=== PATIENT | female | born 1970 | race Caucasian/White ===

== ENCOUNTER 2021-08-12 17:59 | Observation (INO) | payer OTHER, SELFPAY ==
[~2021-08-12] VITALS: Ht 154.9 cm; Wt 94.8 kg
[2021-08-12 18:06] VITALS: BP 150/73
--- NOTE | 2021-08-12 18:14 | NUR ---
PT AMBULATED TO BED 08.
--- NOTE | 2021-08-12 18:35 | NUR ---
RAD AT PATIENT BEDSIDE
[2021-08-12] MEDS ORDERED: guaiFENesin 20 MG/ML UDC PO ONE (18:40)
--- NOTE | 2021-08-12 18:50 | NUR ---
ALEXA AND INFLUENZA A&B COLLECTED AND HANDED TO ELDER TERRAZAS
--- NOTE | 2021-08-12 19:11 | NUR ---
50 y/o female, c/o productive cough with green mucus for 2 months, pt states her daughter is also sick with same symptom that started around the same time. pt denies n/v/d. pt denies dysuria, hematuria, increased urinary frequency and retention. lung bases crackles bl throughout, heart rate even and regular, no edema. skin intact, pt is aa&ox4, ambulates with even and steady gait. pt states pain is 0/10 at this time, intially came in with chest pain, describes it as discomfort with cough only. patient positioned for comfort. hob elevated. bed down. ermd made aware of pt. pmh: dm2, htn nka med: denies
[2021-08-12 19:13] LABS: BASOPHILS # (AUTO) 0.1 K/uL (0.00-0.22); BASOPHILS % (AUTO) 0.9 % (0.0-2.0); EOSINOPHILS # (AUTO) 0.2 K/uL (0-0.4); EOSINOPHILS % (AUTO) 1.9 % (0.0-4.0); HEMATOCRIT 38.6 % (36-48); HEMOGLOBIN 13.1 g/dL (12.0-16.0); LYMPHOCYTES # (AUTO) 3.2 K/uL (2.5-16.5); LYMPHOCYTES % (AUTO) 36.2 % (20.5-51.1); MEAN CORPUSCULAR HEMOGLOBIN 32 pg (27-31); MEAN CORPUSCULAR HGB CONC 34 g/dL (33-37); MEAN CORPUSCULAR VOLUME 92.5 fL (80-94); MONOCYTES # (AUTO) 0.7 K/uL (0.8-1.0); MONOCYTES % (AUTO) 7.6 % (1.7-9.3); NEUTROPHILS # (AUTO) 4.7 K/uL (1.8-7.7); NEUTROPHILS % (AUTO) 53.4 % (42.2-75.2); PLATELET COUNT (AUTO) 210 K/uL (140-450); RED BLOOD CELL COUNT(AUTO) 4.17 MIL/uL (4.20-5.40); RED CELL DISTRIBUTION WIDTH 13.1 % (11.6-13.7); WHITE BLOOD COUNT (AUTO) 8.7 K/uL (4.8-10.8)
[2021-08-12 19:52] LABS: ALBUMIN 3.1 g/dL (3.4-5.0); ANION GAP 14.8 (8-16); CARBON DIOXIDE 28.6 mmol/L (21-32); POTASSIUM 3.4 mmol/L (3.5-5.1); TOTAL BILIRUBIN 0.5 mg/dL (0.0-1.0)
[2021-08-12] MEDS ORDERED: ASPIRIN 81 MG TAB.CHEW PO ONE (19:55)
--- NOTE | 2021-08-12 19:57 | NUR ---
CALLED ADMITTING FOR ADMIT CALLOUT TO [facility]
--- NOTE | 2021-08-12 20:05 | NUR ---
[facility]
--- NOTE | 2021-08-12 20:30 | NUR ---
RESTING COMFORTABLY. PT STATES THAT SHE HAS NOT EATEN AND IS HUNGRY, SANDWICH AND WARM BLANKET GIVEN
[2021-08-12] MEDS ORDERED: POTASSIUM CHLORIDE 10 MEQ TABER PO PRN (21:05)
[2021-08-12] MEDS ORDERED: ONDANSETRON 4 MG/2 ML VIAL IVP PRN (21:05)
[2021-08-12] MEDS ORDERED: ACETAMINOPHEN 325 MG TAB PO PRN (21:05)
[2021-08-12] MEDS ORDERED: MAGNESIUM OXIDE 400 MG TAB PO PRN (21:05)
[2021-08-12] MEDS ORDERED: KCL 20 MEQ/WATER INJ PREMIX 200 ML IV PRN (21:05)
[2021-08-12] MEDS ORDERED: HYDROcodone/APAP 5/325 MG 1 TAB TAB PO PRN (21:05)
[2021-08-12] MEDS ORDERED: MORPHINE SULFATE 4 MG/ML SYR IVP PRN (21:05)
[2021-08-12] MEDS ORDERED: MAG SULF 2000 MG/WATER PREMIX 50 ML IV PRN (21:05)
[2021-08-12] MEDS ORDERED: DEXTROSE 50% 50 ML SYR IVP PRN (21:10)
[2021-08-12] MEDS ORDERED: INSULIN LISPRO SLIDING SCALE 100 UNITS/ML VIAL SUBQ PRN (21:10)
[2021-08-12] MEDS ORDERED: ASPI-1822 PO (21:43)
[2021-08-12] MEDS ORDERED: LISI40TA12 PO (21:44)
[2021-08-12] MEDS ORDERED: METF-350 PO (21:48)
[2021-08-12] MEDS ORDERED: LIP80 PO (21:48)
[2021-08-12] MEDS ORDERED: HYDR-4004 PO (21:49)
[2021-08-12 23:15] VITALS: BP 127/72
[2021-08-12] MEDS ORDERED: ASPIRIN 81 MG TAB.CHEW ONE (23:15)
[2021-08-13 04:00] VITALS: BP 150/76
[2021-08-13] MEDS: BLOOD GLUCOSE MONITORING 1 DEV DEV FS SCH ×2 (06:01→11:50)
--- NOTE | 2021-08-13 07:43 | NUR ---
RECEIVED REPORT FROM S[employer]OL OCCUPATIONAL THERAPIST RN. PT IN STABLE CONDITION.
[2021-08-13 07:52] LABS: BASOPHILS % (AUTO) 0.6 % (0.0-2.0); EOSINOPHILS # (AUTO) 0.2 K/uL (0-0.4); EOSINOPHILS % (AUTO) 2.7 % (0.0-4.0); HEMATOCRIT 38.5 % (36-48); HEMOGLOBIN 13.2 g/dL (12.0-16.0); LYMPHOCYTES # (AUTO) 2.8 K/uL (2.5-16.5); LYMPHOCYTES % (AUTO) 39.8 % (20.5-51.1); MEAN CORPUSCULAR HEMOGLOBIN 31 pg (27-31); MEAN CORPUSCULAR HGB CONC 34 g/dL (33-37); MEAN CORPUSCULAR VOLUME 91.3 fL (80-94); MONOCYTES # (AUTO) 0.6 K/uL (0.8-1.0); MONOCYTES % (AUTO) 8.2 % (1.7-9.3); NEUTROPHILS # (AUTO) 3.4 K/uL (1.8-7.7); NEUTROPHILS % (AUTO) 48.7 % (42.2-75.2); PLATELET COUNT (AUTO) 197 K/uL (140-450); RED BLOOD CELL COUNT(AUTO) 4.21 MIL/uL (4.20-5.40); RED CELL DISTRIBUTION WIDTH 13.3 % (11.6-13.7)
[2021-08-13 07:55] LABS: ANION GAP 13.2 (8-16); CARBON DIOXIDE 31.2 mmol/L (21-32); CREATININE 0.9 mg/dL (0.6-1.3); MAGNESIUM 1.4 mg/dL (1.8-2.4); POTASSIUM 3.4 mmol/L (3.5-5.1); TOTAL BILIRUBIN 0.5 mg/dL (0.0-1.0)
[2021-08-13 07:59] VITALS: BP 136/72
--- NOTE | 2021-08-13 08:22 | NUR ---
PATIENT HAS BEEN SCREENED AND CATEGORIZED LOW NUTRITION RISK. PATIENT WILL BE SEEN WITHIN 7 DAYS OF ADMISSION. 08/19/[address]
[2021-08-13] MEDS ORDERED: ASPIRIN 81 MG TAB.CHEW PO SCH (09:20)
[2021-08-13] MEDS ORDERED: LORATADINE 10 MG TAB PO SCH (10:25)
--- NOTE | 2021-08-13 10:49 | NUR ---
PT IS AOX4, DENIES PAIN, VSS, NAD NOTED. SEEN BY [employer]USTRIAL SALES MANAGER AND CLEARED FROM THEIR STANDPOINT.
[2021-08-13 12:11] VITALS: BP 128/70
[2021-08-13] MEDS ORDERED: LORA10TA19 PO (12:59)
[2021-08-13 13:48] VITALS: BP 136/62
--- NOTE | 2021-08-13 15:33 | NUR ---
PT DISCHARGED HOME, AWARE OF POC, IV DCED. QUESTIONS.CONCERNS ANSWERED AND SAFETY MEASURES IN PLACE.
[2021-08-13] MEDS ORDERED: ATORVASTATIN 80 MG TAB PO SCH (17:00)
[2021-08-14] MEDS ORDERED: hydroCHLOROthiazide 25 MG TAB PO SCH (09:00)
[2021-08-14] MEDS ORDERED: lisinopriL 20 MG TAB PO SCH (09:00)
== END 2021-08-13 15:30 | disposition home or self-care (01) ==
LOC: MED 17:59 → MTU 21:07
PROVIDERS: ADMIT Internal Medicine; ATTEND Internal Medicine
DX: R07.89 Other chest pain (principal); Z20.822 Contact with and (suspected) exposure to COVID-19; I10 Essential (primary) hypertension; E78.5 Hyperlipidemia, unspecified; E87.6 Hypokalemia; E11.9 Type 2 diabetes mellitus without complications; R09.81 Nasal congestion; E88.09 Other disorders of plasma-protein metabolism, not elsewhere classified; E66.9 Obesity, unspecified; Z68.41 Body mass index [BMI] 40.0-44.9, adult; Z79.899 Other long term (current) drug therapy
CPT/HCPCS: 36415; 71045; 80053; 82948; 83735; 83880; 84484; 85025; 87081; 87426; 87804; 96365; 96366; 96372; 99284; G0378; J1644; J3475; Q0092

== ENCOUNTER 2022-03-14 11:51 | Emergency (ER) | payer OTHER ==
[~2022-03-14] VITALS: Ht 152.4 cm; Wt 93.9 kg
[~2022-03-14 11:51] MED LIST: ASPI-1822 PO; HYDR-4004 PO; LIP80 PO; LISI40TA12 PO; LORA10TA19 PO; METF-350 PO
[2022-03-14 11:57] VITALS: BP 199/106
--- NOTE | 2022-03-14 12:00 | NUR ---
PT SENT TO ER LOBBY TO WAIT FOR MSE.
[2022-03-14] MEDS ORDERED: IBUP-2213 PO (12:24)
[2022-03-14 13:25] VITALS: BP 189/99
== END 2022-03-14 13:21 | disposition home or self-care (01) ==
LOC: MED 11:51
DX: G89.29 Other chronic pain (principal); M25.522 Pain in left elbow; E11.9 Type 2 diabetes mellitus without complications; Z79.899 Other long term (current) drug therapy; Z79.84 Long term (current) use of oral hypoglycemic drugs; Z79.82 Long term (current) use of aspirin
CPT/HCPCS: 99282

== ENCOUNTER 2022-05-10 10:40 | Emergency (ER) | payer OTHER ==
[~2022-05-10] VITALS: Ht 154.9 cm; Wt 93.6 kg
[~2022-05-10 10:40] MED LIST changes: +IBUP-2213 PO
[2022-05-10 11:00] VITALS: BP 199/114
[2022-05-10] MEDS ORDERED: ONDANSETRON 4 MG/2 ML VIAL IVP ONE (11:50)
[2022-05-10] MEDS ORDERED: MORPHINE SULFATE 4 MG/ML SYR IVP ONE (11:50)
[2022-05-10] MEDS ORDERED: KETOROLAC 15 MG/ML VIAL IVP ONE (12:00)
[2022-05-10 12:01] LABS: APPEARANCE,URINE SL CLOUDY (CLEAR); BILIRUBIN,URINE NEGATIVE (NEGATIVE); BLOOD, URINE NEGATIVE (NEGATIVE); COLOR,URINE YELLOW (YELLOW); LEUKOCYTE ESTERASE ,URINE NEGATIVE (NEGATIVE); NITRITE, URINE NEGATIVE (NEGATIVE); UGLUCOSE 1+ (NEGATIVE)
[2022-05-10 12:06] LABS: RBC,URINE 0-5 /HPF (0-5); WBC,URINE 0-5 /HPF (0-5)
[2022-05-10 12:20] LABS: BASOPHILS % (AUTO) 0.6 % (0.0-2.0); EOSINOPHILS # (AUTO) 0.1 K/uL (0-0.4); EOSINOPHILS % (AUTO) 1.7 % (0.0-4.0); HEMATOCRIT 46.1 % (36-48); HEMOGLOBIN 15.3 g/dL (12.0-16.0); LYMPHOCYTES # (AUTO) 3.1 K/uL (2.5-16.5); MEAN CORPUSCULAR HEMOGLOBIN 31 pg (27-31); MEAN CORPUSCULAR HGB CONC 33 g/dL (33-37); MEAN CORPUSCULAR VOLUME 94.1 fL (80-94); MONOCYTES # (AUTO) 0.6 K/uL (0.8-1.0); MONOCYTES % (AUTO) 7.5 % (1.7-9.3); NEUTROPHILS % (AUTO) 51.2 % (42.2-75.2); PLATELET COUNT (AUTO) 218 K/uL (140-450); RED CELL DISTRIBUTION WIDTH 13.8 % (11.6-13.7); WHITE BLOOD COUNT (AUTO) 7.9 K/uL (4.8-10.8)
[2022-05-10 12:34] LABS: ALBUMIN 3.1 g/dL (3.4-5.0); ANION GAP 9.9 (8-16); CARBON DIOXIDE 33.6 mmol/L (21-32); CREATININE 0.9 mg/dL (0.6-1.3); POTASSIUM 3.5 mmol/L (3.5-5.1); TOTAL BILIRUBIN 0.4 mg/dL (0.0-1.0)
[2022-05-10 13:01] VITALS: BP 173/90
== END 2022-05-10 14:04 | disposition home or self-care (01) ==
LOC: MED 10:40
DX: R10.13 Epigastric pain (principal); R14.0 Abdominal distension (gaseous); R68.83 Chills (without fever); E11.9 Type 2 diabetes mellitus without complications; I10 Essential (primary) hypertension; Z90.710 Acquired absence of both cervix and uterus; Z79.899 Other long term (current) drug therapy
CPT/HCPCS: 36415; 74177; 80053; 81001; 81002; 82948; 83690; 85025; 96374; 96375; 99285; J1885; J2405; Q9967

== ENCOUNTER 2022-12-13 15:53 | Emergency (ER) | payer OTHER ==
[~2022-12-13] VITALS: Ht 154.9 cm; Wt 95.3 kg
[2022-12-13 16:14] VITALS: BP 165/95; PULSE 86; RESP 18; TEMP 97.7; O2SAT 99
[2022-12-13] MEDS ORDERED: NAPR-1704 PO (18:36)
--- NOTE | 2022-12-13 18:44 | NUR ---
Patient discharged with v/s stable. Written and verbal after care instructions given and explained. Patient alert, oriented and verbalized understanding of instructions. Ambulatory with steady gait. All questions addressed prior to discharge. ID band removed. Patient advised to follow up with PMD. Rx of NAPRSYN given. Patient educated on indication of medication including possible reaction and side effects. Opportunity to ask questions provided and answered.
== END 2022-12-13 18:44 | disposition home or self-care (01) ==
LOC: MED 15:53
DX: S83.91XA Sprain of unspecified site of right knee, initial encounter (principal); M17.11 Unilateral primary osteoarthritis, right knee; E11.9 Type 2 diabetes mellitus without complications; I10 Essential (primary) hypertension; Z90.710 Acquired absence of both cervix and uterus; Z79.899 Other long term (current) drug therapy; Z79.82 Long term (current) use of aspirin; Z79.1 Long term (current) use of non-steroidal anti-inflammatories (NSAID); X58.XXXA Exposure to other specified factors, initial encounter; Y92.89 Other specified places as the place of occurrence of the external cause; Y93.89 Activity, other specified; Y99.8 Other external cause status
CPT/HCPCS: 73562; 99283

== ENCOUNTER 2023-04-15 10:35 | Emergency (ER) | payer OTHER ==
[~2023-04-15] VITALS: Ht 152.4 cm; Wt 90.7 kg
[~2023-04-15 10:35] MED LIST changes: +NAPR-1704 PO
[2023-04-15] MEDS ORDERED: KETOROLAC 30 MG/ML VIAL IM ONE (11:00)
[2023-04-15 11:30] VITALS: BP 187/88; PULSE 75; RESP 20; TEMP 97.7; O2SAT 97
[2023-04-15] MEDS ORDERED: IBUP-1842 PO (11:45)
[2023-04-15 12:03] VITALS: BP 144/68; PULSE 75; RESP 20; TEMP 97.7; O2SAT 97
== END 2023-04-15 12:05 | disposition home or self-care (01) ==
LOC: MED 10:35
DX: M25.561 Pain in right knee (principal); M25.562 Pain in left knee; E11.9 Type 2 diabetes mellitus without complications; I10 Essential (primary) hypertension; Z79.1 Long term (current) use of non-steroidal anti-inflammatories (NSAID); Z79.899 Other long term (current) drug therapy; Z79.82 Long term (current) use of aspirin
CPT/HCPCS: 73562; 99283; J1885

== ENCOUNTER 2023-11-15 10:35 | Observation (INO) | payer OTHER ==
[~2023-11-15] VITALS: Ht 152.4 cm; Wt 94.3 kg
[~2023-11-15 10:35] MED LIST changes: +IBUP-1842 PO
[2023-11-15 10:55] VITALS: BP 195/99; PULSE 82; RESP 18; TEMP 97.9; O2SAT 95
[2023-11-15 11:59] LABS: BASOPHILS # (AUTO) 0.1 K/uL (0.00-0.22); BASOPHILS % (AUTO) 1.1 % (0.0-2.0); EOSINOPHILS # (AUTO) 0.2 K/uL (0-0.4); EOSINOPHILS % (AUTO) 2.3 % (0.0-4.0); HEMOGLOBIN 14.7 g/dL (12.0-16.0); LYMPHOCYTES # (AUTO) 2.9 K/uL (2.5-16.5); LYMPHOCYTES % (AUTO) 37.1 % (20.5-51.1); MEAN CORPUSCULAR HEMOGLOBIN 32 pg (27-31); MEAN CORPUSCULAR HGB CONC 34 g/dL (33-37); MEAN CORPUSCULAR VOLUME 91.8 fL (80-94); MONOCYTES # (AUTO) 0.6 K/uL (0.8-1.0); MONOCYTES % (AUTO) 7.8 % (1.7-9.3); NEUTROPHILS # (AUTO) 4.1 K/uL (1.8-7.7); NEUTROPHILS % (AUTO) 51.7 % (42.2-75.2); PLATELET COUNT (AUTO) 235 K/uL (140-450); RED BLOOD CELL COUNT(AUTO) 4.68 MIL/uL (4.20-5.40); RED CELL DISTRIBUTION WIDTH 13.2 % (11.6-13.7); WHITE BLOOD COUNT (AUTO) 7.9 K/uL (4.8-10.8)
[2023-11-15] MEDS: LABETALOL 20 MG/4 ML VIAL IVP ONE (12:09)
[2023-11-15 12:18] LABS: INR 0.85 (0.8-1.2); PARTIAL THROMBOPLASTIN TIME 23.6 secs (22-35.6)
[2023-11-15 12:21] LABS: ANION GAP 12.5 (8-16); CALCIUM 9.4 mg/dL (8.5-10.1); CARBON DIOXIDE 28.2 mmol/L (21-32); CREATININE 1.1 mg/dL (0.6-1.3); POTASSIUM 3.7 mmol/L (3.5-5.1)
[2023-11-15] MEDS: MORPHINE SULFATE 4 MG/ML SYR IVP ONE (12:21)
[2023-11-15] MEDS: ONDANSETRON 4 MG/2 ML VIAL IVP ONE (12:22)
[2023-11-15 12:28] LABS: ALANINE AMINOTRANSFERASE 23 U/L (12-78); ALBUMIN 2.9 g/dL (3.4-5.0); ALKALINE PHOSPHATASE 114 U/L (50-136); ASPARTATE AMINOTRANSFERASE 11 U/L (15-37); BILIRUBIN,DIRECT 0.1 mg/dL (0.0-0.3); TOTAL BILIRUBIN 0.5 mg/dL (0.0-1.0); TOTAL PROTEIN, SERUM 7.4 g/dL (6.4-8.2)
[2023-11-15] MEDS: ASPIRIN 325 MG TAB PO ONE (13:43)
[2023-11-15] MEDS ORDERED: DEXTROSE 50% 50 ML SYR IVP PRN (14:20)
[2023-11-15 16:00] VITALS: BP 155/77; PULSE 70; PULSE 75; RESP 19; TEMP 98; O2SAT 94
[2023-11-15] MEDS: BLOOD GLUCOSE MONITORING 1 DEV DEV FS SCH (16:30)
[2023-11-15] MEDS: INSULIN LISPRO SLIDING SCALE 100 UNITS/ML VIAL SUBQ PRN (17:43)
[2023-11-15] MEDS: ONDANSETRON 4 MG/2 ML VIAL IVP PRN (17:45)
[2023-11-15] MEDS: MORPHINE SULFATE 2 MG/ML SYR IVP PRN (17:46)
[2023-11-15 20:00] VITALS: BP 169/85; PULSE 70; PULSE 71; RESP 19; TEMP 97.1; O2SAT 93
[2023-11-15] MEDS: PANTOPRAZOLE 40 MG INJ VIAL IVP SCH (22:23)
[2023-11-15] MEDS: hydrALAZINE 20 MG/ML VIAL IVP PRN (22:55)
[2023-11-16] VITALS: BP 156/78; PULSE 77; PULSE 78; RESP 19; TEMP 97.5; O2SAT 98
[2023-11-16 04:00] VITALS: BP 157/82; PULSE 73; PULSE 74; RESP 18; TEMP 97.3; O2SAT 94
[2023-11-16 06:46] LABS: BASOPHILS # (AUTO) 0.1 K/uL (0.00-0.22); BASOPHILS % (AUTO) 0.9 % (0.0-2.0); EOSINOPHILS # (AUTO) 0.2 K/uL (0-0.4); EOSINOPHILS % (AUTO) 2.9 % (0.0-4.0); HEMATOCRIT 42.1 % (36-48); HEMOGLOBIN 14.2 g/dL (12.0-16.0); LYMPHOCYTES % (AUTO) 40.5 % (20.5-51.1); MEAN CORPUSCULAR HEMOGLOBIN 31 pg (27-31); MEAN CORPUSCULAR HGB CONC 34 g/dL (33-37); MEAN CORPUSCULAR VOLUME 92.8 fL (80-94); MONOCYTES # (AUTO) 0.6 K/uL (0.8-1.0); MONOCYTES % (AUTO) 8.5 % (1.7-9.3); NEUTROPHILS # (AUTO) 3.5 K/uL (1.8-7.7); NEUTROPHILS % (AUTO) 47.2 % (42.2-75.2); PLATELET COUNT (AUTO) 199 K/uL (140-450); RED BLOOD CELL COUNT(AUTO) 4.54 MIL/uL (4.20-5.40); RED CELL DISTRIBUTION WIDTH 13.2 % (11.6-13.7); WHITE BLOOD COUNT (AUTO) 7.3 K/uL (4.8-10.8)
[2023-11-16] MEDS: ACETAMINOPHEN 325 MG TAB PO PRN (07:04)
[2023-11-16 07:10] LABS: ANION GAP 10.9 (8-16); CALCIUM 8.8 mg/dL (8.5-10.1); CARBON DIOXIDE 29.7 mmol/L (21-32); CREATININE 1.2 mg/dL (0.6-1.3); POTASSIUM 3.6 mmol/L (3.5-5.1)
[2023-11-16 08:00] VITALS: BP 147/78; PULSE 75; PULSE 78; RESP 17; RESP 18; TEMP 97.6; O2SAT 93; O2SAT 95
[2023-11-16] MEDS: lisinopriL 20 MG TAB PO SCH (10:02)
[2023-11-16] MEDS: ATORVASTATIN 20 MG TAB PO SCH (10:02)
[2023-11-16] MEDS: ASPIRIN 81 MG TAB.CHEW PO SCH (10:02)
[2023-11-16 12:00] VITALS: BP 131/68; PULSE 69; PULSE 80; RESP 18; TEMP 97.3; O2SAT 95
[2023-11-16 16:00] VITALS: BP 165/85; PULSE 111; PULSE 73; RESP 18; TEMP 97; O2SAT 95
[2023-11-16] MEDS ORDERED: PANT40EC PO (18:31)
[2023-11-16 18:41] VITALS: BP 122/64; PULSE 98; RESP 18; TEMP 98
[2023-11-16] MEDS ORDERED: MEDS-TO-BEDS MC SCH (21:00)
== END 2023-11-16 19:07 | disposition home or self-care (01) ==
LOC: MED 10:35 → MTU 14:13
PROVIDERS: ADMIT Hospitalist; ATTEND Hospitalist
DX: R07.89 Other chest pain (principal); I10 Essential (primary) hypertension; I16.1 Hypertensive emergency; E11.65 Type 2 diabetes mellitus with hyperglycemia; I21.A1 Myocardial infarction type 2; E66.01 Morbid (severe) obesity due to excess calories; M54.9 Dorsalgia, unspecified; Z90.710 Acquired absence of both cervix and uterus; Z79.82 Long term (current) use of aspirin; Z68.41 Body mass index [BMI] 40.0-44.9, adult; Z79.899 Other long term (current) drug therapy
CPT/HCPCS: 36415; 71045; 71275; 74174; 80048; 80076; 83735; 83880; 84484; 85025; 85610; 85730; 87081; 93005; 96372; 96374; 96375; 96376; 99291; C8929; C9113; G0378; J0360; J1815; J2270; J2405; J3490; Q9967; 82948

== ENCOUNTER 2024-04-24 11:22 | Emergency (ER) | payer OTHER ==
[~2024-04-24] VITALS: Ht 152.4 cm; Wt 88.9 kg
[~2024-04-24 11:22] MED LIST changes: -IBUP-1842 PO; -IBUP-2213 PO; -NAPR-1704 PO; +PANT40EC PO
[2024-04-24 11:28] VITALS: BP 181/109; PULSE 98; RESP 18; TEMP 97.4; O2SAT 95
[2024-04-24 12:48] LABS: BASOPHILS % (AUTO) 0.2 % (0.0-2.0); EOSINOPHILS # (AUTO) 0.2 K/uL (0-0.4); EOSINOPHILS % (AUTO) 2.1 % (0.0-4.0); HEMATOCRIT 43.2 % (36-48); HEMOGLOBIN 14.2 g/dL (12.0-16.0); LYMPHOCYTES # (AUTO) 0.9 K/uL (2.5-16.5); LYMPHOCYTES % (AUTO) 7.9 % (20.5-51.1); MEAN CORPUSCULAR HEMOGLOBIN 30 pg (27-31); MEAN CORPUSCULAR HGB CONC 33 g/dL (33-37); MEAN CORPUSCULAR VOLUME 92.4 fL (80-94); MONOCYTES # (AUTO) 0.5 K/uL (0.8-1.0); MONOCYTES % (AUTO) 4.6 % (1.7-9.3); NEUTROPHILS # (AUTO) 9.8 K/uL (1.8-7.7); NEUTROPHILS % (AUTO) 85.2 % (42.2-75.2); PLATELET COUNT (AUTO) 249 K/uL (140-450); RED BLOOD CELL COUNT(AUTO) 4.67 MIL/uL (4.20-5.40); RED CELL DISTRIBUTION WIDTH 13.7 % (11.6-13.7); WHITE BLOOD COUNT (AUTO) 11.6 K/uL (4.8-10.8)
[2024-04-24 12:58] LABS: ANION GAP 11.2 (8-16); CALCIUM 9.1 mg/dL (8.5-10.1); CARBON DIOXIDE 33.8 mmol/L (21-32); CREATININE 1.2 mg/dL (0.6-1.3)
[2024-04-24] MEDS ORDERED: ALUMINUM HYD/MAG/SIMETHICONE 30 ML UDC ONE (13:19)
[2024-04-24] MEDS ORDERED: DICYCLOMINE HCL LIQUID 10 MG/5 ML UDC ONE (13:19)
[2024-04-24] MEDS: ONDANSETRON 4 MG ODT PO ONE (13:27)
[2024-04-24] MEDS: DICYCLOMINE HCL LIQUID 20 MG, ALUMINUM HYD/MAG/SIMETHICONE 30 ML, LIDOCAINE VISCOUS 2% ... PO ONE (13:28)
[2024-04-24] MEDS: KETOROLAC 30 MG/ML VIAL IM ONE (13:29)
[2024-04-24 13:53] LABS: ALBUMIN 3.2 g/dL (3.4-5.0); TOTAL BILIRUBIN 0.7 mg/dL (0.0-1.0); TOTAL PROTEIN, SERUM 7.6 g/dL (6.4-8.2)
[2024-04-24 14:10] LABS: APPEARANCE,URINE CLEAR (CLEAR); BILIRUBIN,URINE NEGATIVE (NEGATIVE); BLOOD, URINE NEGATIVE (NEGATIVE); COLOR,URINE YELLOW (YELLOW); LEUKOCYTE ESTERASE ,URINE NEGATIVE (NEGATIVE); NITRITE, URINE NEGATIVE (NEGATIVE); PROTEIN,URINE 3+ (NEGATIVE); UGLUCOSE NEGATIVE (NEGATIVE); UROBILINOGEN,URINE 0.2 EU/dL (0.2 - 1)
[2024-04-24] MEDS ORDERED: MAG355OR2 PO (14:44)
[2024-04-24] MEDS ORDERED: FAMO-90 PO (14:44)
[2024-04-24] MEDS ORDERED: ONDA-188 SL (14:44)
[2024-04-24 15:00] VITALS: BP 143/79; PULSE 84; RESP 16; TEMP 98.6; O2SAT 98
== END 2024-04-24 15:00 | disposition home or self-care (01) ==
LOC: MED 11:22
DX: K29.70 Gastritis, unspecified, without bleeding (principal); E11.9 Type 2 diabetes mellitus without complications; I10 Essential (primary) hypertension; Z79.899 Other long term (current) drug therapy; Z79.82 Long term (current) use of aspirin
CPT/HCPCS: 36415; 80053; 81003; 81025; 82948; 83690; 85025; 96372; 99284; J1885; Q0162